=== PATIENT | male | born 1960 | race Caucasian/White ===

== ENCOUNTER 2016-08-16 23:50 | Emergency (ER) | payer OTHER ==
--- NOTE | ~2016-08-16 | CR116 ---
[facility] A Service of [facility] & [facility] RADIOLOGY TEXT RESULTS PATIENT: MOOSE SHUKLA LOCATION: [facility] : 58 UNIT #: [id number] AGE: [address]: Jemima Aguiar MD SEX: M ORDER DR: [id number] [facility] [address] [place], [place] [address] [id number] MR#: [id number] Acc #: [id number] NAME: MOOSE SHUKLA : 1960 SEX: M STUDY DATE/TIME: 08/17/2016 1:21 UNIT: [facility] ROOM: STUDY DESCRIPTION: CR Finger 2 View Thumb Lt Attending Physician: Jemima Aguiar M.D. Ordering Physician: Jemima Aguiar M.D. Primary Care Physician: Primary Care Physician No MEDICAL IMAGING REPORT This report is preliminary unless electronic signature is present EXAM 3 views left thumb. DATE: 08/17/2016 HISTORY Left arm pain distally. Drill bit went into nail tonight. COMPARISON: None FINDINGS No fracture. No joint dislocation. Moderate osteoarthritic change of the interphalangeal joint. Mild osteoarthritic change of the first metacarpal phalangeal joints and carpal metacarpal joint. No retained radiopaque foreign body is seen. IMPRESSION No acute abnormality of the left thumb. Osteoarthritic changes greatest at the interphalangeal joint. Dictated by... Aleisha Alarcon M.D. THIS IS AN ELECTRONICALLY VERIFIED REPORT Aleisha Alarcon M.D. at 08/17/2016 10:02 PM EDNA/maadn TD: 08/17/2016 07:34 JOB #: [id number] MEDICAL IMAGING REPORT COPY
[~2016-08-16 23:50] MED LIST: ALEVE; ERYTHROMYC3.5 GM OPT OU; FLOMAX0.4 M1 PO; IBUPROFEN800 MG PO; MACROBID100 M1 PO; NO MEDICATIONS; PERCOCET 5-3251 TAB PO; PYRIDIUM PO; TYLOX 5-500 MG1 EACH PO; VICODIN 5/1 TAB 5/50 PO
== END 2016-08-17 02:39 | disposition home or self-care (01) ==
LOC: CED 23:50
DX: S61.132A Puncture wound without foreign body of left thumb with damage to nail, initial encounter (principal); Z23 Encounter for immunization; W26.8XXA Contact with other sharp object(s), not elsewhere classified, initial encounter; Y92.009 Unspecified place in unspecified non-institutional (private) residence as the place of occurrence of the external cause
CPT/HCPCS: 73140; 90471; 90715; 99283

== ENCOUNTER 2016-09-17 18:11 | Emergency (ER) | payer OTHER | END 2016-09-17 19:20 | disposition home or self-care (01) | LOC: SED 18:11 | DX: S31.119A Laceration without foreign body of abdominal wall, unspecified quadrant without penetration into peritoneal cavity, initial encounter (principal); Z87.442 Personal history of urinary calculi; W31.89XA Contact with other specified machinery, initial encounter; Y92.009 Unspecified place in unspecified non-institutional (private) residence as the place of occurrence of the external cause | CPT/HCPCS: 12001; 99283 ==